=== PATIENT | female | born 1950 | race Caucasian/White ===

== ENCOUNTER → 2020-10-21 10:27 | Outpatient (CLI) | payer MEDICARE, MEDICAID, SELFPAY ==
--- NOTE | 2020-10-21 10:34 | DI.US.S_ITS ---
PROCEDURE: US CAROTID DOPPLER BI INDICATIONS: TRANSIENT CEREBRAL ISCHEMIC ATTACK TECHNIQUE: Color and pulse Doppler interrogation was performed of both carotid systems, with image documentation and velocity measurements. COMPARISON: None. FINDINGS: Stenosis calculations are based on SRU (S[employer] in Ultras[employer]) criteria. Right side: Brachial blood pressure: 126/74 mm Hg. Common carotid artery peak systolic velocity: 87 cm/sec. Internal carotid artery peak systolic velocity: 178 cm/sec. Internal carotid artery end diastolic velocity: 62 cm/sec. External carotid artery peak systolic velocity: 99 cm/sec. ICA/CCA peak systolic ratio: 2.1 . Goldman scale imaging description: Plaque at the proximal ICA Percent internal carotid artery stenosis: 50-69% . Vertebral artery: Flow direction is antegrade. Left side: Brachial blood pressure: 134/80 mm Hg. Common carotid artery peak systolic velocity: 95 cm/sec. Internal carotid artery peak systolic velocity: 120 cm/sec. Internal carotid artery end diastolic velocity: 34 cm/sec. External carotid artery peak systolic velocity: 149 cm/sec. ICA/CCA peak systolic ratio: 1.3 . Goldman scale imaging description: Calcified plaque at the bifurcation Percent internal carotid artery stenosis: 1.3 . Vertebral artery: Flow direction is antegrade. Incidentally noted thyroid nodules as below. IMPRESSION: 50-69% right ICA stenosis. Less than 50% left ICA stenosis. Incidentally noted are multiple thyroid nodules seen bilaterally measuring 1.5 x 1.0 x 0.9 cm in the right mid lobe and 2.5 x 1.8 x 1.5 cm in the upper pole of the left lobe. Recommend dedicated thyroid ultrasound. Dictated by: Christiano Atkinson M.D. on 10/21/2020 at 17:24 Approved by: Christiano Atkinson M.D. on 10/21/2020 at 17:26
== END ==
PROVIDERS: PCP Physician Assistant Medical; Referring Provider Physician Assistant Medical; Visit Provider Physician Assistant Medical
DX: G45.9 Transient cerebral ischemic attack, unspecified (principal); I65.23 Occlusion and stenosis of bilateral carotid arteries; E04.2 Nontoxic multinodular goiter
CPT/HCPCS: 93880